=== PATIENT | male | born 1965 | race Caucasian/White ===

== ENCOUNTER → 2017-09-16 | Outpatient (CLI) | payer MEDICARE ==
[~2017-09-16] VITALS: Ht 175.3 cm; Wt 91.8 kg
[2017-09-16 12:43] VITALS: BP 152/100
[2017-09-16 13:09] LABS: HEMATOCRIT 46.9 % (42.0-52.0); HEMOGLOBIN 15.5 g/dL (13.5-18.0); MEAN PLATELET VOLUME 9.5 fl (7.4-10.4); RED BLOOD COUNT 4.8 M/mm3 (4.20-5.60); WHITE BLOOD COUNT 6.1 K/mm3 (4.8-10.8)
[2017-09-16 13:26] LABS: ALBUMIN 4.3 g/dL (3.5-5.0); BUN/CREATININE RATIO 7.5 (6.0-26.0); CALCIUM 9.1 mg/dL (8.4-10.2); TOTAL PROTEIN 8.8 g/dL (6.3-8.2)
== END ==
LOC: RAD 12:23 → LAB 12:23
PROVIDERS: Family Medicine
DX: M19.012 Primary osteoarthritis, left shoulder (principal); M25.812 Other specified joint disorders, left shoulder; G62.9 Polyneuropathy, unspecified; M25.512 Pain in left shoulder; I10 Essential (primary) hypertension; Z86.39 Personal history of other endocrine, nutritional and metabolic disease

== ENCOUNTER → 2019-06-22 | Outpatient (CLI) | payer MEDICARE ==
[2019-06-09 02:42] VITALS: BP 122/90
[~2019-06-22] MED LIST: OMEPRAZOLE40 MG PO
== END ==
LOC: RAD 06-13 14:40
DX: K22.8 Other specified diseases of esophagus (principal); I77.810 Thoracic aortic ectasia; R91.1 Solitary pulmonary nodule
CPT/HCPCS: Q9967

== ENCOUNTER 2019-07-01 08:16 | Emergency (ER) | payer MEDICARE ==
[~2019-07-01] VITALS: Ht 180.3 cm; Wt 98.6 kg
[2019-07-01] MEDS ORDERED: NIGHTTIME COLD PO (08:31)
[2019-07-01 08:48] LABS: HEMATOCRIT 42.5 % (42.0-52.0); HEMOGLOBIN 14.1 g/dL (13.5-18.0); MEAN CELL VOLUME 94 fl (78-100); MEAN CORPUSCULAR HEMOGLOBIN 31 pg (27-31); MEAN CORPUSCULAR HGB CONC 33 g/dL (33-37); MEAN PLATELET VOLUME 8.5 fl (7.4-10.4); PLATELET COUNT 327 K/mm3 (130-400); RED BLOOD COUNT 4.54 M/mm3 (4.20-5.60); WHITE BLOOD COUNT 9.8 K/mm3 (4.8-10.8)
[2019-07-01 08:59] LABS: POTASSIUM 4.2 mmol/L (3.5-5.1)
[2019-07-01 09:00] LABS: CALCIUM 8.9 mg/dL (8.3-10.5)
[2019-07-01 09:04] LABS: LYMPHOCYTE 9 % (20-51); MONOCYTE 11 % (3-10); NEUTROPHILS 80 % (42-75)
[2019-07-01 11:08] VITALS: BP 131/85
== END 2019-07-01 11:04 | disposition home or self-care (01) ==
LOC: ED 08:16
PROVIDERS: Family Medicine
DX: E86.9 Volume depletion, unspecified (principal); E87.1 Hypo-osmolality and hyponatremia; K22.9 Disease of esophagus, unspecified; E03.9 Hypothyroidism, unspecified
CPT/HCPCS: J7030

== ENCOUNTER 2019-07-06 19:18 | Emergency (ER) | payer MEDICARE ==
[~2019-07-06 19:18] MED LIST changes: +NIGHTTIME COLD PO
[2019-07-06 23:52] VITALS: BP 136/86
== END 2019-07-07 00:13 | disposition home or self-care (01) ==
LOC: ED 19:18
PROVIDERS: Family Medicine
DX: E86.9 Volume depletion, unspecified (principal); E87.1 Hypo-osmolality and hyponatremia; E86.0 Dehydration; K22.8 Other specified diseases of esophagus; R13.10 Dysphagia, unspecified
CPT/HCPCS: J7030